=== PATIENT | female | born 1990 | race Caucasian/White ===

== ENCOUNTER 2017-09-10 15:32 | Emergency (ER) | payer SELFPAY ==
[~2017-09-10 15:32] MED LIST: ALBU8.5H IH; AZIT-1 PO; DOCU-416 PO; OXYC-865 PO
--- NOTE | 2017-09-10 16:10 | RADIOLOGY IMAGING REPORT ---
FACILITY: [facility] PATIENT NAME: Catalina Orozco : 1990 MR: [id number] V: [id number] EXAM DATE: ORDERING PHYSICIAN: BUTCH CAO TECHNOLOGIST: Location: [facility] [place] Patient: Catalina Orozco : 1990 Visit/Account:[id number] Date of Sevice: 09/10/2017 Exam type: SHOULDER MIN 2 VIEWS LEFT History: PAIN AFTER LIFTING Comparison: None. Findings: Two views the left shoulder reveal no evidence of acute fracture or dislocation of the left shoulder. . There is no widening of the acromioclavicular joint on the AP view although on the scapular Y view there suggestion of mild superior displacement of the distal left clavicle with respect to the acrom ion. Clinical correlation needed to exclude a subtle left AC joint separation IMPRESSION: 1. No evidence of acute fracture or dislocation of the left shoulder Although the left AC joint does not appear widened on the AP view, on the scapular Y view there sugge stion of mild superior displacement of the distal left clavicle with respect to the acromion. Clinic al correlation needed to exclude a subtle left AC joint separation Report Dictated By: Vickie Aguirre MD at 09/10/2017 3:59 PM Report E-Signed By: Vickie Aguirre MD at 09/10/2017 4:06 PM WSN:[id number]
[2017-09-10] MEDS ORDERED: CYCLOBENZAPRINE HCL 10 MG TAB PO ONE (17:25)
[2017-09-10] MEDS ORDERED: IBUPROFEN 600 MG TAB PO ONE (17:25)
[2017-09-10] MEDS ORDERED: CYCL10TA29 PO (17:32)
[2017-09-10] MEDS ORDERED: IBUP600T22 PO (17:32)
--- NOTE | 2017-09-10 17:33 | ER Report ---
History and Physical Time Seen By MD: 16:00 Hx. of Stated Complaint: LEFT SHOULDER PAIN AFTER PICKING UP DOG APPROX 1 HOUR AGO. HPI/ROS This is an otherwise healthy 27-year-old female who presents to the emergency department with left posterior shoulder pain. The pain started after she was lifting her 75 pound dog over the fence from the neighbor's yard today. She has pain in the left trapezius area. She does have full range of motion of her left shoulder and arm. No other injuries or falls. Remainder of the 14 system rev: Yes Allergies: Coded Allergies: No Known Drug Allergies (Unverified , 04/10/17) Home Meds Active Scripts Albuterol Sulfate 90 Mcg/Act (PROAIR HFA 90 MCG/ACT) 8.5 Gm Hfa.aer.ad, 2 PUFF IH Q4-6H, #1 INHALER Prov:IGNACIACASE Mignon SIEVE REPAIRER-BC 04/10/17 Reviewed Nurses Notes: Yes Old Medical Records Reviewed: Yes Hx Smoking: Yes (1ppd) Smoking Status: Current: Every Day Smoker Hx Substance Use Disorder: Yes Hx Alcohol Use: No Constitutional Vital Sign - Last 24 Hours 09/10/17 09/10/17 15:45 15:52 Temp 98.9 Pulse 71 77 Resp 18 16 B/P (MAP) 103/62 103/62 (76) Pulse Ox 96 94 O2 Delivery Room Air Room Air Physical Exam General Appearance: The patient is alert, has no immediate need for airway protection and no current signs of toxicity. Eyes: Pupils equal and round no injection. Respiratory: cta b/l Cardiac: regular rate and rhythm Musculoskeletal: TTP of the left trapezius Extremities have full range of motion and are non tender. Skin: No rashes or lesions. DIFFERENTIAL DIAGNOSIS: After history and physical exam differential diagnosis was considered for fracture, dislocation, rotator cuff tear Medical Decision Making EKG/Imaging Imaging X-ray: left shoulder was obtained. I viewed the images myself on the PACS system. My interpretation of the images is: no fracture or dislocation. The radiologist interpretation had no clinically significant variation from this interpretation. ED Course/Re-evaluation ED Course 27-year-old otherwise healthy female who sustained what is likely a left trapezius strain or a sprain of the left rotator cuff. She has full range of motion of her left shoulder and full strength. She is neurovascularly intact. No other injuries. I will give her Flexeril for a muscle spasm/tear. And ibuprofen for inflammation. I gave her a sling for comfort, and she will follow- up with her primary care physician if the pain continues after week. Decision to Disposition Date: September 10, 2017 Decision to Disposition Time: 17:31 Depart Departure Latest Vital Signs Vital Signs Date Time Temp Pulse Resp B/P (MAP) Pulse Ox O2 Delivery O2 Flow Rate FiO2 09/10/17 15:52 98.9 77 16 103/62 (76) 94 Room Air Impression: Primary Impression: Left shoulder strain Condition: Improved Disposition: HOME OR SELF-CARE New Scripts Ibuprofen (IBUPROFEN) 600 Mg Tablet 1 TAB PO Q6H for 14 Days, #30 TAB Prov: BUTCH CAO MD 09/10/17 Cyclobenzaprine Hcl (CYCLOBENZAPRINE HCL) 10 Mg Tablet 10 MG PO Q8H Y for MUSCLE SPASMS for 4 Days, #20 TAB 0 Refills Prov: BUTCH CAO MD 09/10/17 Patient Instructions: Shoulder Sprain (ED) Problem Qualifiers Primary Impression: Left shoulder strain Encounter type: initial encounter Qualified Codes: S46.912A - Strain of unspecified muscle, fascia and tendon at shoulder and upper arm level, left arm , initial encounter BUTCH CAO MD September 10, 2017 17:33
[2017-09-10 17:35] VITALS: BP 102/76
== END 2017-09-10 17:40 | disposition home or self-care (01) ==
LOC: ER 16:05
DX: S46.912A Strain of unspecified muscle, fascia and tendon at shoulder and upper arm level, left arm, initial encounter (principal)
CPT/HCPCS: 99282; A4565

== ENCOUNTER 2018-06-09 11:14 | Emergency (ER) | payer BC ==
[~2018-06-09 11:14] MED LIST changes: +CYCL10TA29 PO; +IBUP600T22 PO
--- NOTE | 2018-06-09 11:22 | ER Report ---
History and Physical Time Seen By MD: 11:22 HPI/ROS CHIEF COMPLAINT: Rapid heart rate HISTORY OF PRESENT ILLNESS: 28-year-old female patient presents to emergency room with complaint of rapid heart rate. Patient states this started this morning while she was at work. Patient states that she works at [employer]. She states that she's had this in the past. She states that she's been seen in the hospital in the past for this and was told that there is nothing found. She denies having shortness of breath. She states she did feel as if she had work harder to breathe. She denies any fevers, chills, nausea, vomiting or diarrhea. Patient states that she is not having improvement over the last few hours since it started. Patient does have a history of a 30 day Holter which was negative. REVIEW OF SYSTEMS: Respiratory: No cough, no dyspnea. Cardiovascular: As noted above Gastrointestinal: No vomiting, no abdominal pain. Musculoskeletal: No back pain. Allergies: Coded Allergies: No Known Drug Allergies (Unverified , 04/10/17) Home Meds Active Scripts Metoprolol Succinate (METOPROLOL SUCCINATE) 25 Mg Tab.er.24h, 1 TAB PO QDAY, #30 TAB Prov:JAMES BELLA 06/09/18 Ibuprofen (IBUPROFEN) 600 Mg Tablet, 1 TAB PO Q6H for 14 Days, #30 TAB Prov:BUTCH CAO MD 09/10/17 Cyclobenzaprine Hcl (CYCLOBENZAPRINE HCL) 10 Mg Tablet, 10 MG PO Q8H PRN for MUS [place] SPASMS for 4 Days, #20 TAB 0 Refills Prov:BUTCH CAO MD 09/10/17 Albuterol Sulfate 90 Mcg/Act (PROAIR HFA 90 MCG/ACT) 8.5 Gm Hfa.aer.ad, 2 PUFF IH Q4-6H, #1 INHALER Prov:CASE BETH LIVESTOCK RANCHER-BC 04/10/17 Past Medical/Surgical History Patient has a past medical history of meth abuse. Patient has a pertinent surgical history of appendectomy. Reviewed Nurses Notes: Yes Hx Smoking: Yes (1ppd) Smoking Status: Current: Every Day Smoker Hx Substance Use Disorder: Yes Hx Alcohol Use: No Constitutional Vital Sign - Last 24 Hours 06/09/18 06/09/18 06/09/18 06/09/18 11:18 11:19 11:30 11:45 Temp 98.0 Pulse 158 142 86 Resp 18 22 20 B/P (MAP) 152/88 (109) 152/88 141/80 (100) Pulse Ox 94 100 86 O2 Delivery Room Air 06/09/18 06/09/18 12:15 12:30 Pulse 83 92 Resp 16 40 Pulse Ox 100 96 Physical Exam General Appearance: The patient is alert, has no immediate need for airway protection and no current signs of toxicity. Respiratory: Chest is non tender, lungs are clear to auscultation. Cardiac: regular rhythm, patient does have a heart rate of 148 Gastrointestinal: Abdomen is soft and non tender, no masses, bowel sounds norm al. Musculoskeletal: Neck: Neck is supple and non tender. Extremities have full range of motion and are non tender. Skin: No rashes or lesions. DIFFERENTIAL DIAGNOSIS: After history and physical exam differential diagnosis was considered for Johnna SCHROEDER Medical Decision Making Data Points Result Diagram: 06/09/18 1125 06/09/18 1125 Laboratory Hematology Test 06/09/18 11:25 Red Blood Count 5.30 M/uL (4.17-5.56) Mean Corpuscular Volume 88.9 fL (80.0-96.0) Mean Corpuscular Hemoglobin 29.3 pg (26.0-33.0) Mean Corpuscular Hemoglobin Concent 33.0 g/dL (32.0-36.0) Red Cell Distribution Width 13.7 % (11.5-14.5) Mean Platelet Volume 8.9 fL (7.2-11.1) Neutrophils (%) (Auto) 61.3 % (39.4-72.5) Lymphocytes (%) (Auto) 28.9 % (17.6-49.6) Monocytes (%) (Auto) 8.1 % (4.1-12.4) Eosinophils (%) (Auto) 1.2 % (0.4-6.7) Basophils (%) (Auto) 0.5 % (0.3-1.4) Nucleated RBC Relative Count (auto) 0.1 /100WBC Neutrophils # (Auto) 4.1 K/uL (2.0-7.4) Lymphocytes # (Auto) 1.9 K/uL (1.3-3.6) Monocytes # (Auto) 0.5 K/uL (0.3-1.0) Eosinophils # (Auto) 0.1 K/uL (0.0-0.5) Basophils # (Auto) 0.0 K/uL (0.0-0.1) Nucleated RBC Absolute Count (auto) 0.01 K/uL Sodium Level 139 mmol/L (137-145) Potassium Level 3.6 mmol/L (3.5-5.0) Chloride Level 110 mmol/L (98-107) Carbon Dioxide Level 23 mmol/L (22-31) Blood Urea Nitrogen 8 mg/dl (7-18) Creatinine 0.70 mg/dl (0.52-1.04) Glomerular Filtration Rate Calc > 60.0 Random Glucose 108 mg/dl (75-110) Calcium Level 9.3 mg/dl (8.4-10.2) Total Bilirubin 0.8 mg/dl (0.2-1.3) Aspartate Amino Transf (AST/SGOT) 22 U/L (0-35) Alanine Aminotransferase (ALT/SGPT) 24 U/L (0-56) Alkaline Phosphatase 55 U/L (0-126) Total Protein 7.2 g/dl (6.3-8.2) Albumin 4.7 g/dl (3.5-5.0) Chemistry Test 06/09/18 11:25 White Blood Count 6.7 k/uL (4.5-11.0) Red Blood Count 5.30 M/uL (4.17-5.56) Hemoglobin 15.5 g/dL (12.0-16.0) Hematocrit 47.1 % (34.0-47.0) Mean Corpuscular Volume 88.9 fL (80.0-96.0) Mean Corpuscular Hemoglobin 29.3 pg (26.0-33.0) Mean Corpuscular Hemoglobin Concent 33.0 g/dL (32.0-36.0) Red Cell Distribution Width 13.7 % (11.5-14.5) Platelet Count 225 K/uL (150-450) Mean Platelet Volume 8.9 fL (7.2-11.1) Neutrophils (%) (Auto) 61.3 % (39.4-72.5) Lymphocytes (%) (Auto) 28.9 % (17.6-49.6) Monocytes (%) (Auto) 8.1 % (4.1-12.4) Eosinophils (%) (Auto) 1.2 % (0.4-6.7) Basophils (%) (Auto) 0.5 % (0.3-1.4) Nucleated RBC Relative Count (auto) 0.1 /100WBC Neutrophils # (Auto) 4.1 K/uL (2.0-7.4) Lymphocytes # (Auto) 1.9 K/uL (1.3-3.6) Monocytes # (Auto) 0.5 K/uL (0.3-1.0) Eosinophils # (Auto) 0.1 K/uL (0.0-0.5) Basophils # (Auto) 0.0 K/uL (0.0-0.1) Nucleated RBC Absolute Count (auto) 0.01 K/uL Glomerular Filtration Rate Calc > 60.0 Calcium Level 9.3 mg/dl (8.4-10.2) Total Bilirubin 0.8 mg/dl (0.2-1.3) Aspartate Amino Transf (AST/SGOT) 22 U/L (0-35) Alanine Aminotransferase (ALT/SGPT) 24 U/L (0-56) Alkaline Phosphatase 55 U/L (0-126) Total Protein 7.2 g/dl (6.3-8.2) Albumin 4.7 g/dl (3.5-5.0) EKG/Imaging EKG Interpretation 12 lead EKG done at 1118: Rhythm: Supraventricular tachycardia with ventricular rate 147 bpm Gilman: normal QRS: normal ST segments: normal 12 lead EKG done at 1138: Rhythm: normal sinus rhythm Gilman: normal QRS: normal ST segments: normal Imaging CHEST PA LAT Indication: rapid heart rate Comparison: Chest x-ray 04/10/2017. Findings: Lungs: Clear. Mediastinum/pulmonary vasculature: Heart size and pulmonary vasculature are normal. Bones/soft tissues: Normal. IMPRESSION: Clear lungs. Report Dictated By: Raymond Chambers at 06/09/2018 12:20 PM Report E-Signed By: Raymond Chambers at 06/09/2018 12:20 PM ED Course/Re-evaluation ED Course Patient was admitted to an exam room, history and physical were obtained. Differential diagnoses were considered. Reexamination patient does have a racing heart with ventricular rate of 148 bpm. Lungs are clear, abdomen soft nontender. An IV was started, CBC, CMP were obtained. A EKG was done which showed SVT with ventricular rate of 147 bpm. The patient then received 6 mg of adenosine, which slowed her heart rate down to 111 with no obvious pause. At that time we did decide to go ahead and do 12 mg of adenosine. That was performed and we were able to convert her back to normal sinus rhythm of 81 bpm. Blood work was unremarkable, the chest x-ray was unremarkable. I did initially thought that we will go ahead and have her follow-up with her primary care provider. However with this being the second time I felt that we should probably go ahead and put her on metoprolol and see if we can prevent any recurrence. I saw the patient follow-up with primary care. Patient verbalized understanding and agreement with plan. Decision to Disposition Date: Jun 09, 2018 Decision to Disposition Time: 13:00 Depart Departure Latest Vital Signs Vital Signs Date Time Temp Pulse Resp B/P (MAP) Pulse Ox O2 Delivery O2 Flow Rate FiO2 06/09/18 12:30 92 40 96 06/09/18 11:30 141/80 (100) 06/09/18 11:19 98.0 Room Air Impression: Primary Impression: SVT (supraventricular tachycardia) Condition: Improved Disposition: HOME OR SELF-CARE New Scripts Metoprolol Succinate (METOPROLOL SUCCINATE) 25 Mg Tab.er.24h 1 TAB PO QDAY, #30 TAB Prov: JAMES BELLA 06/09/18 Patient Instructions: Supraventricular Tachycardia (ED) Additional Instructions: Follow up with a primary care provider. Return to the ER if condition worsens. Avoid caffeine, if you must absolutely have it, have it in as low a dose as possible. Get plenty of rest. I anticipate that you will need to follow up with residential support worker. JAMES BELLA Jun 09, 2018 11:22
[2018-06-09 11:30] VITALS: BP 141/80
[2018-06-09] MEDS ORDERED: ADENOSINE(*)IV SOLN 3MG/ML IVP ONE ×2 (11:30→11:40)
[2018-06-09] MEDS ORDERED: NS(*) 0.9% 1000 ML BAG 1,000 ML IV ONE (11:30)
[2018-06-09 11:39] LABS: PLATELET COUNT, AUTOMATED 225 K/uL (150-450)
--- NOTE | 2018-06-09 11:50 | EKG ---
FACILITY: [facility] PATIENT NAME: SAMEER SANON : [id number] MR: [id number] V: [id number] EXAM DATE: ORDERING PHYSICIAN: JAMES BELLA TECHNOLOGIST: RADHA Barron Reason : TACHY Blood Pressure : / mmHG Vent. Rate : 147 BPM Atrial Rate : 080 BPM P-R Int : 000 ms QRS Dur : 066 ms QT Int : 290 ms P-R-T Axes : 000 119 055 degrees QTc Int : 453 ms Supraventricular tachycardia Otherwise normal ECG No previous ECGs available Confirmed by Lucas Olguin ([id number]) on 06/09/2018 9:45:09 PM Referred By: MARIANA Confirmed By:Lucas Regan
--- NOTE | 2018-06-09 12:24 | RADIOLOGY IMAGING REPORT ---
FACILITY: [facility] - [place] PATIENT NAME: Catalina Orozco : 1990 MR: [id number] V: [id number] EXAM DATE: ORDERING PHYSICIAN: JAMES BELLA TECHNOLOGIST: Location: [facility] - [place] Patient: Catalina Orozco : 1990 Visit/Account:[id number] Date of Sevice: 06/09/2018 CHEST PA LAT Indication: rapid heart rate Comparison: Chest x-ray 04/10/2017. Findings: Lungs: Clear. Mediastinum/pulmonary vasculature: Heart size and pulmonary vasculature are normal. Bones/soft tissues: Normal. IMPRESSION: Clear lungs. Report Dictated By: Raymond Chambers at 06/09/2018 12:20 PM Report E-Signed By: Raymond Chambers at 06/09/2018 12:20 PM WSN:[id number]
--- NOTE | 2018-06-09 12:52 | EKG ---
FACILITY: [facility] - [place] PATIENT NAME: SAMEER SANON : [id number] MR: [id number] V: [id number] EXAM DATE: ORDERING PHYSICIAN: JAMES BELLA TECHNOLOGIST: RADHA Barron Reason : REPEAT POST SVT Blood Pressure : / mmHG Vent. Rate : 081 BPM Atrial Rate : 081 BPM P-R Int : 150 ms QRS Dur : 072 ms QT Int : 370 ms P-R-T Axes : 083 089 065 degrees QTc Int : 429 ms Normal sinus rhythm Normal ECG When compared with ECG of 09-JUN-2018 11:18, Vent. rate has decreased BY 66 BPM QRS axis shifted left Confirmed by Lucas Olguin ([id number]) on 06/09/2018 9:45:26 PM Referred By: JENA Confirmed By:Lucas Regan
[2018-06-09] MEDS ORDERED: METO25TA23 PO (12:58)
== END 2018-06-09 13:12 | disposition home or self-care (01) ==
LOC: ER 11:37
DX: I47.1 Supraventricular tachycardia (principal)
CPT/HCPCS: 71046; 85025; 93005; 93225; 96361; 96374; 99284; J0153; J7030; 82040; 82247; 82310; 82374; 82435; 82565; 82947; 84075; 84132; 84155; 84295; 84450; 84460; 84520